=== PATIENT | male | born 1940 | race Caucasian/White ===

== ENCOUNTER 2016-10-16 09:11 | Inpatient (IN) | END 2016-10-19 11:38 | disposition home or self-care (01) | DRG 246 | DX: I25.110 Atherosclerotic heart disease of native coronary artery with unstable angina pectoris (principal); I71.01 Dissection of thoracic aorta; D64.9 Anemia, unspecified; I10 Essential (primary) hypertension; E78.5 Hyperlipidemia, unspecified; F41.9 Anxiety disorder, unspecified; Z95.5 Presence of coronary angioplasty implant and graft; Z87.891 Personal history of nicotine dependence ==